=== PATIENT | male | born 1990 | race Caucasian/White ===

== ENCOUNTER 2017-01-27 14:53 | Emergency (ER) | payer OTHER ==
[~2017-01-27] VITALS: Ht 185.4 cm; Wt 108.9 kg
[2017-01-27] MEDS ORDERED: IBUPROFEN SUSP 100MG/5ML (MOTRIN) UDC ONE (16:09)
[2017-01-27] MEDS ORDERED: AMOX400S9 (16:23)
[2017-01-27] MEDS ORDERED: VENTOLIN (16:23)
--- NOTE | 2017-01-27 16:25 | ED Cough/URI ---
General Chief Complaint: Cough/Cold/Flu Symptoms Stated Complaint: COLD/FLU SYMPTOMS Nursing Triage Note: PT CO OF COLD COUGH AND FLU SX STATES STARTED RUNNING FEVER LAST PM, HAS SORE THROAT, HAS LARGE AMOUNT OF THRUSH ON TONGUE AND MOUTH Source: patient Exam Limitations: no limitations History of Present Illness Time seen by provider: 16:24 Initial Comments 26-year-old male patient presents to the emergency department complains of cough , congestion, sore throat beginning approximately one week ago. Now is running a fever which started last night. Patient also states he does have thrush after using the antibiotics. No improvement in symptoms. Does have sneezing and rhinorrhea. Timing/Duration: week, getting worse Severity/Quality: productive cough Prior Episodes/Possible Cause: no prior episodes Modifying Factors: Worse With Antibiotics (no improvement), Worse With Coughing Allergies and Home Medications Allergies Coded Allergies: No Known Drug Allergies (Unverified , 01/27/17) Home Medications #18 (Reported) Amoxicillin 400 Mg/5 Ml Susp.recon #200 (Reported) Nystatin 100,000 Unit/1 Ml Oral.susp #200 5 UNIT PO QID Prescribed by: TONEY CASTILLO on 01/27/171849 Oseltamivir Phosphate 6 Mg/1 Ml Susp.recon #125 75 MG PO BID Prescribed by: TONEY CASTILLO on 01/27/171849 Constitutional: see HPI chills dizziness fever malaise other (generalized body aches) EENTM: nose congestion see HPI throat painNo ear pain, No mouth pain, No throat swelling Respiratory: see HPI cough Cardiovascular: no symptoms reported Gastrointestinal: No abdominal pain, No constipation, No diarrhea, loss of appetiteNo nausea, No vomiting Genitourinary: no symptoms reported Musculoskeletal: no symptoms reported Skin: no symptoms reported Psychiatric/Neurological: No Symptoms Reported All Other Systems Reviewed Negative Unless Noted: Yes (Negative excepted noted.) Past Zjiftgv-Hgcydb-Zlvzft Hx Patient Social History Alcohol Use: Rarely Uses Recreational Drug Use: No Smoking Status: Never a Smoker Recent Foreign Travel: No Contact w/Someone Who Travel: No Recent Infectious Disease Expo: No Respiratory Hx Respiratory Disorders: No Cardiovascular Hx Cardiac Disorders: No Neurological Hx Neurological Disorders: No Genitourinary Hx Genitourinary Disorders: No Reviewed Nursing Assessment Reviewed/Agree w Nursing PMH: Yes Family Medical History Significant Family History: No Pertinent Family Hx Physical Exam Vital Signs Capillary Refill : Less Than 3 Seconds General Appearance: WD/WN no apparent distress HEENT: PERRL/EOMI TMs normal pharyngeal erythemaNo tonsillar exudate, other ( positive nasal congestion. Dry oral mucosa. WHITE, fuzzy coating on the tongue consistent with candidiasis.) Neck: full range of motion supple lymphadenopathy (R) (tender to palpation) lymphadenopathy (L) (tender to palpation) Respiratory: lungs clear normal breath sounds no respiratory distress no accessory muscle use Cardiovascular: normal peripheral pulses regular rate, rhythm no murmur Gastrointestinal: non tender softNo distended Extremities: normal capillary refill Neurologic/Psychiatric: alert normal mood/affect oriented x 3 Skin: normal color warm/dry (increased warmth.) Progress/Results/Core Measures Results/Orders Lab Results Laboratory Tests Test 01/27/17 17:00 Range/Units Alanine Aminotransferase (ALT/SGPT) 36 0-55 U/L Albumin 4.1 3.2-4.5 G/DL Alkaline Phosphatase 61 40-136 U/L Anion Gap 10 5-14 MMOL/L Aspartate Amino Transf (AST/SGOT) 23 5-34 U/L BUN/Creatinine Ratio 11 Basophils # (Auto) 0.0 0.0-0.1 10^3/uL Basophils (%) (Auto) 0 0-10 % Blood Morphology Comment NORMAL Blood Urea Nitrogen 10 7-18 MG/DL Calcium Level 9.0 8.5-10.1 MG/DL Carbon Dioxide Level 24 21-32 MMOL/L Chloride Level 102 98-107 MMOL/L Creatinine 0.92 0.60-1.30 MG/DL Eosinophils # (Auto) 0.0 0.0-0.3 10^3/uL Eosinophils (%) (Auto) 0 0-10 % Estimat Glomerular Filtration Rate > 60 Glucose Level 113 H 70-105 MG/DL Hematocrit 47 40-54 % Hemoglobin 16.4 13.3-17.7 G/DL Lymphocytes # (Auto) 1.5 1.0-4.0 X 10^3 Lymphocytes % (Manual) 5 % Lymphocytes (%) (Auto) 11 L 12-44 % Mean Corpuscular Hemoglobin 31 25-34 PG Mean Corpuscular Hemoglobin Concent 35 32-36 G/DL Mean Corpuscular Volume 89 80-99 FL Mean Platelet Volume 10.5 H 7.4-10.4 FL Monocytes # (Auto) 1.8 H 0.0-1.0 X 10^3 Monocytes % (Manual) 8 % Monocytes (%) (Auto) 13 H 0-12 % Neutrophils # (Auto) 10.7 H 1.8-7.8 X 10^3 Neutrophils % (Manual) 79 % Neutrophils (%) (Auto) 76 H 42-75 % Platelet Count 194 130-400 10^3/uL Potassium Level 3.9 3.6-5.0 MMOL/L Reactive Lymphocytes 8 % Red Blood Count 5.33 4.35-5.85 10^6/uL Red Cell Distribution Width 13.0 10.0-14.5 % Sodium Level 136 135-145 MMOL/L Total Bilirubin 0.3 0.1-1.0 MG/DL Total Protein 7.4 6.4-8.2 G/DL White Blood Count 14.0 H 4.3-11.0 10^3/uL Micro Results Microbiology 01/27/17 Influenza Types A,B Antigen (DANICA) - Final, Complete My Orders Orders-TONEY CASTILLO Influenza A And B Antigens (01/27/17 16:13) Saline Lock/Iv-Start (01/27/17 16:35) Chest Pa/Lat (2 View) (01/27/17 16:35) Ns Iv 1000 Ml (Sodium Chloride 0.9%) (01/27/17 16:35) Cbc With Automated Diff (01/27/17 16:35) Comprehensive Metabolic Panel (01/27/17 16:35) Manual Differential (01/27/17 17:00) Acetaminophen Oral Solution (Tylenol Ora (01/27/17 18:15) Medications Given in ED Vital Signs/I&O Blood Pressure Mean: 104 Diagnostic Imaging Diagonstic Imaging: Xray Plain Films/CT/US/NM/MRI: chest Comments no acute cardiopulmonary findings. Reviewed: Other (report impression taken from [facility] inspector scales (unable to open the draft and radiologist is gone until tomorrow)) Departure Communication Progress Notes Chest x-ray dictation unavailable. I did contact the radiology Department of [facility]. Call was transferred to the inspector scales at [facility]. States they are able to view the report, but unable to send me a copy as the radiologist has not signed off on the report and will not be back until tomorrow morning. Findings reported to me from the inspector scales. Laboratory and diagnostic findings discussed with the patient. Patient's influenza test is negative, however patient has become suspicious for influenza. Proceed with discharge home with Tamiflu and nystatin. Patient does report feeling better with medications given in the emergency department. Reports dizziness is completely resolved after IV fluids. All return precautions were discussed with the patient as described in the discharge instructions of this report. Patient voices understanding and agrees with the treatment plan. Impression Impression: Primary Impression: Influenza-like symptoms Additional Impression: Yoli, oral Disposition: HOME, SELF-CARE Condition: Improved Departure-Patient Inst. Decision time for Depature: 18:48 Referrals: NO,LOCAL PHYSICIAN (PCP/Family) Primary Care Physician Patient Instructions: Flu, Adult (DC), Thrush (DC) Add. Discharge Instructions: All discharge instructions reviewed with patient and/or family. Voiced understanding. Medications as directed. Tylenol 1000 mg by mouth every 6 hours as needed for fever, headache, or pain. Motrin 800 mg by mouth every 8 hours as needed for pain, fever, or headache. Drink plenty of fluids. Cool humidifier. Saline nasal spray and Afrin nasal spray [id number] as directed for nasal congestion. Follow-up with her family practitioner if no improvement in symptoms. Return to the emergency department for worsened fever , cough, shortness of air, vomiting, decreased urination, dizziness, or any other concerns. Scripts Nystatin 100,000 Unit/1 Ml Oral.susp5 Unit PO QID #200 ML Ref 0 Prov:TONEY CASTILLO 01/27/17 Oseltamivir Phosphate (Tamiflu)6 Mg/1 Ml Susp.recon75 Mg PO BID #125 ML Ref 0 Prov:TONEY CASTILLO 01/27/17 Work/School Note: Local Medical Staff Listing, Work Release Form Date Seen in the Emergency Department: Jan 27, 2017 Return to Work: Jan 29, 2017 Restrictions: Return-No Fever (24hrs), Return-No Vomiting(24hrs) TONEY CASTILLO Jan 27, 2017 16:25
[2017-01-27] MEDS ORDERED: NS IV 1000 ML 1,000 ML IV ONE (16:35)
[2017-01-27 17:15] LABS: BASOPHILS % (AUTO) 0 % (0-10); EOSINOPHILS % (AUTO) 0 % (0-10); LYMPHOCYTES # (AUTO) 1.5 X 10^3 (1.0-4.0); LYMPHOCYTES % (AUTO) 11 % (12-44); MEAN CORPUSCULAR HEMOGLOBIN 31 PG (25-34); MEAN CORPUSCULAR HGB CONC 35 G/DL (32-36); MEAN CORPUSCULAR VOLUME 89 FL (80-99); MEAN PLATELET VOLUME 10.5 FL (7.4-10.4); MONOCYTES # (AUTO) 1.8 X 10^3 (0.0-1.0); MONOCYTES % (AUTO) 13 % (0-12); NEUTROPHILS # (AUTO) 10.7 X 10^3 (1.8-7.8); NEUTROPHILS % (AUTO) 76 % (42-75); PLATELET COUNT 194 10^3/uL (130-400); RED BLOOD COUNT 5.33 10^6/uL (4.35-5.85)
[2017-01-27 17:32] LABS: ALANINE AMINOTRANSFERASE 36 U/L (0-55); ALBUMIN 4.1 G/DL (3.2-4.5); ANION GAP 10 MMOL/L (5-14); ASPARTATE AMINO TRANSFERASE 23 U/L (5-34); BILIRUBIN,TOTAL 0.3 MG/DL (0.1-1.0); BLOOD UREA NITROGEN 10 MG/DL (7-18); BUN/CREATININE RATIO 11; CARBON DIOXIDE 24 MMOL/L (21-32); CHLORIDE 102 MMOL/L (98-107); CREATININE SERUM 0.92 MG/DL (0.60-1.30); GFR ESTIMATED > 60; GLUCOSE 113 MG/DL (70-105); POTASSIUM 3.9 MMOL/L (3.6-5.0); SODIUM 136 MMOL/L (135-145); TOTAL PROTEIN 7.4 G/DL (6.4-8.2)
[2017-01-27 17:45] LABS: LYMPHOCYTES % (MANUAL) 5 %; NEUTROPHILS % (MANUAL) 79 %; REACTIVE LYMPHOCYTES 8 %
[2017-01-27] MEDS ORDERED: APAP 325 MG/10.15 ML LIQ (TYLENOL) UDC PO ONE (18:15)
[2017-01-27] MEDS ORDERED: OSEL6SUS3 PO (18:50)
[2017-01-27] MEDS ORDERED: NYST1000 PO (18:50)
[2017-01-27 19:08] VITALS: BP 139/87
--- NOTE | 2017-01-28 08:20 | Diagnostic Imaging Report ---
INDICATION: Fever and cough for one week. Comparison studies: None. FINDINGS: Frontal and lateral views of the chest demonstrate the lungs to be clear. The heart, mediastinum, pulmonary vascularity, and visualized bony thorax are normal. IMPRESSION: Negative chest. Dictated by: Dictated on workstation # [id number]
== END 2017-01-27 19:07 | disposition home or self-care (01) ==
LOC: ER 14:56
DX: J11.1 Influenza due to unidentified influenza virus with other respiratory manifestations (principal); B37.0 Candidal stomatitis
CPT/HCPCS: 36415; 71020; 80053; 85007; 85027; 87804; 96360